=== PATIENT | female | born 1975 | race Caucasian/White ===

== ENCOUNTER 2019-11-07 02:35 | Emergency (ER) | payer BC, OTHER ==
[2019-11-07] MEDS ORDERED: KETOROLAC TROMETHAMINE 60 MG/2 ML VIAL ONE (02:44)
[2019-11-07 02:45] VITALS: BP 149/103; PULSE 97; TEMP 98.1; BMI 30.7
--- NOTE | 2019-11-07 02:48 | PDOC ---
History of Present Illness - General Chief Complaint: Pain Stated Complaint: TRIGEMINAL NEURALGIA Time Seen by Provider: 11/07/19 02:40 History Source: Patient Exam Limitations: No Limitations - History of Present Illness Initial Comments: 11/07/19 02:41 This is a 44-year-old female with history of trigeminal neuralgia in the past that resolved with taking gabapentin. Who comes back in complaining of return of the pain. Patient restarted the gabapentin but said is not helping this time. Patient otherwise denies any fever, chills, nausea vomiting or diarrhea. Allergies: as per nursing notes Past Medical History: none Social history: Lives with family. No smoking. No alcohol. No illicit drugs. Surgical history: None General: No fevers or chills, no weakness, no weight loss HEENT: No change in vision. No sore throat,. No ear pain, pain trigeminal neuralgia CardioVascular: no chest discomfort. No shortness of breath Respiratory:No cough, or wheezing. Gastrointestinal: no nausea, vomiting, diarrhea or constipation, No rectal bleeding Genitourinary: No dysuria, hematuria, or frequency Musculoskeletal: No joint or muscle pain or swelling Neurologic: No headache, vertigo, dizziness or loss of consciousness Psychiatric: nor depression Skin: No rashes or easy bruising Endocrine: no increased thirst or abnormal weight change Allergic: no skin or latex allergy All other systems reviewed and normal GENERAL: The patient is awake, alert, and fully oriented, in no acute distress. HEENT:Head is normal with no signs of trauma. Eyes: Pupils equal, round and reactive to light, Ears, and Throat are normal. Neck is supple. No Lymphadenopathy. EXTREMITIES:atraumatic, Normal range of motion, no edema. NEUROLOGICAL: Normal speech, normal gait. PSYCH: Normal mood, normal affect. SKIN: Warm, Dry, normal turgor, no rashes or lesions noted. Assessment and plan: This a 44-year-old female with trigeminal neuralgia on gabapentin. Patient was to discontinue the gabapentin and I gave her some Toradol and sent a prescription for naproxen to her pharmacy. Past History - Medical History Allergies/Adverse Reactions: Allergies Allergy/AdvReac Type Severity Reaction Status Date / Time No Known Allergies Allergy Unverified 11/07/19 02:36 Home Medications: Ambulatory Orders Cetirizine HCl [Zyrtec] 10 mg PO DAILY 11/07/19 Levothyroxine [Synthroid -] 125 mcg PO DAILY 11/07/19 Metformin HCl [Glucophage] 500 mg PO PRN PRN 11/07/19 Naproxen 500 mg PO BID PRN 30 Days #60 tab 11/07/19 Sitagliptin Phos/Metformin HCl [Janumet 50-1,000 mg Tablet] 1 each PO BID 11/07/19 Discharge - Discharge Information Problems reviewed: Yes Clinical Impression/Diagnosis: Trigeminal neuralgia of right side of face Condition: Stable Disposition: HOME - Admission Yes - Follow up/Referral Referrals: Aracelis Chapman [Primary Care Provider] - - Patient Discharge Instructions Additional Instructions: Continue the gabapentin Edition take naproxen 1 tablet twice a day Return to the emergency department immediately with ANY new, persistent or worsening symptoms. Continue any medications as previously prescribed by your physician. You should follow up with your primary doctor as soon as possible regarding today's emergency department visit. . Please make sure your doctor reviews the results of your emergency evaluation. Thank you for coming to the Emergency Department today for your care. It was a pleasure to see you today. Please note that your evaluation is INCOMPLETE until you follow-up with your doctor. - Post Discharge Activity
[2019-11-07] MEDS ORDERED: KETOROLAC TROMETHAMINE 60 MG/2 ML VIAL IM ONE (02:49)
== END 2019-11-07 02:52 | disposition home or self-care (01) ==
LOC: FER 02:35
PROC: 3E0233Z Introduction of Anti-inflammatory into Muscle, Percutaneous Approach (ICD-10-PCS; principal; 2019-11-07)
DX: G50.0 Trigeminal neuralgia (principal)
CPT/HCPCS: 99284-25